=== PATIENT | female | born 1970 | race Hispanic/Latino ===

== ENCOUNTER 2021-05-25 11:33 | Emergency (ER) | payer BC, MEDICAID ==
[~2021-05-25] VITALS: Ht 154.9 cm; Wt 68.0 kg
[2021-05-25] MEDS ORDERED: ONDANSETRON 4MG INJ ONE (12:16)
[2021-05-25] MEDS ORDERED: HYDROMORPHONE 0.5 MG SYG (0.5MG/0.5ML) ONE (12:16)
[2021-05-25] MEDS ORDERED: ONDANSETRON 4MG INJ IVP ONE (12:30)
[2021-05-25] MEDS ORDERED: HYDROMORPHONE 0.5 MG SYG (0.5MG/0.5ML) IVP ONE (12:30)
[2021-05-25 12:36] LABS: BASOPHILS % (AUTO) 0.2 % (0.0-5.0); EOSINOPHILS % (AUTO) 0.2 % (0.0-8.0); HEMATOCRIT 39.3 % (36-48); LYMPHOCYTES % (AUTO) 8.9 % (21.0-51.0); MEAN CORPUSCULAR HGB CONC 32.8 g/dL (32.0-36.0); MEAN CORPUSCULAR VOLUME 88.3 fL (79-99); MONOCYTES % (AUTO) 3.3 % (3.0-13.0); PLATELET COUNT (AUTO) 401 K/uL (130-400); RED BLOOD CELL COUNT(AUTO) 4.45 MIL/uL (4.00-5.50); RED CELL DISTRIBUTION WIDTH 13.8 % (11.0-15.5); WHITE BLOOD COUNT (AUTO) 16.3 K/uL (4.8-10.8)
[2021-05-25 12:50] LABS: ALBUMIN 4.2 g/dL (3.5-5.0); BILIRUBIN,TOTAL 0.4 mg/dL (0.2-1.0); CREATININE 0.7 mg/dL (0.5-1.5); POTASSIUM 3.1 mmol/L (3.5-5.1); TOTAL PROTEIN, SERUM 8.3 g/dL (6.0-8.3)
[2021-05-25] MEDS ORDERED: HYDROMORPHONE 0.5 MG SYG (0.5MG/0.5ML) IVP SCH (12:51)
[2021-05-25] MEDS ORDERED: 0.9%NACL 1000ML 1,000 ML IV SCH (12:51)
[2021-05-25 13:22] LABS: APPEARANCE,URINE Turbid (CLEAR); BILIRUBIN,URINE Negative (NEGATIVE); COLOR,URINE Yellow (YELLOW); GLUCOSE, URINE (UA) Negative (NEGATIVE); KETONES,URINE Negative (NEGATIVE); LEUKOCYTE ESTERASE ,URINE Trace (NEGATIVE); NITRATE,URINE Negative (NEGATIVE); OCCULT BLOOD,URINE Nonhemolyzed Trace (NEGATIVE); PROTEIN,URINE POS 1+ mg/dL (NEGATIVE); UROBILINOGEN,URINE 0.2 mg/dL (0.2-1.0)
[2021-05-25 13:31] LABS: AMORPHOUS SEDIMENT,UR Moderate /LPF (None Seen); BACTERIA,URINE Few /HPF (None Seen); PH,URINE 1.025 (5.0-8.0); RBC,URINE 0-1 /HPF (0-1); SQUAMOUS EPITHELIAL CELL,UR Rare /HPF (0-2)
[2021-05-25] MEDS ORDERED: IOHEXOL-350 75 ML VIAL IV ONE (15:07)
[2021-05-25] MEDS ORDERED: CEFTRIAXONE 1G VIAL ONE (16:10)
[2021-05-25] MEDS ORDERED: KETOROLAC 30MG VIAL (30MG/ML) ONE (16:10)
[2021-05-25] MEDS ORDERED: CIPR-278 PO (16:15)
[2021-05-25] MEDS ORDERED: IBUP-2088 PO (16:15)
[2021-05-25] MEDS ORDERED: ONDA4TAB4 PO (16:15)
[2021-05-25] MEDS ORDERED: CEFTRIAXONE 1G VIAL IVP SCH (16:20)
[2021-05-25 16:21] VITALS: BP 134/81
[2021-05-25] MEDS ORDERED: KETOROLAC 30MG VIAL (30MG/ML) IV SCH (16:30)
== END 2021-05-25 16:28 | disposition home or self-care (01) ==
LOC: EDH 11:33
DX: N20.1 Calculus of ureter (principal); K68.9 Other disorders of retroperitoneum; Z88.0 Allergy status to penicillin; Z79.899 Other long term (current) drug therapy; I10 Essential (primary) hypertension; M32.9 Systemic lupus erythematosus, unspecified; Z98.890 Other specified postprocedural states
CPT/HCPCS: 36415; 74177; 80053; 81001; 82150; 83690; 85025; 87088; 96374; 96375; 96376; 99284; J0696; J1170 ×2; J1885; J2405; Q9967

== ENCOUNTER 2021-11-12 21:04 | Emergency (ER) | payer BC ==
[~2021-11-12] VITALS: Ht 154.9 cm; Wt 70.3 kg
[~2021-11-12 21:04] MED LIST: CIPR-278 PO; IBUP-2088 PO; ONDA4TAB4 PO
[2021-11-12 21:26] LABS: APPEARANCE,URINE Clear (CLEAR); BILIRUBIN,URINE Negative (NEGATIVE); COLOR,URINE Yellow (YELLOW); GLUCOSE, URINE (UA) Negative (NEGATIVE); KETONES,URINE Negative (NEGATIVE); LEUKOCYTE ESTERASE ,URINE Negative (NEGATIVE); NITRATE,URINE Negative (NEGATIVE); OCCULT BLOOD,URINE Negative (NEGATIVE); PH,URINE 7.5 (5.0-8.0); PROTEIN,URINE Negative (NEGATIVE); UROBILINOGEN,URINE 0.2 mg/dL (0.2-1.0)
[2021-11-12] MEDS ORDERED: ONDANSETRON 4MG INJ IVP ONE (21:30)
[2021-11-12] MEDS ORDERED: PANTOPRAZOLE 40 MG/VIAL IVP ONE (21:30)
[2021-11-12] MEDS ORDERED: FAMOTIDINE 20MG VIAL IV ONE ×2 (21:30→21:36)
[2021-11-12] MEDS ORDERED: 0.9%NACL 1000ML 1,000 ML IV ONE (21:30)
[2021-11-12] MEDS ORDERED: METOCLOPRAMIDE 10 MG/2 ML VIAL IVP ONE (21:30)
[2021-11-12 21:31] LABS: BASOPHILS % (AUTO) 0.2 % (0.0-5.0); EOSINOPHILS % (AUTO) 1.6 % (0.0-8.0); HEMATOCRIT 41.4 % (36-48); LYMPHOCYTES % (AUTO) 28.4 % (21.0-51.0); MEAN CORPUSCULAR HEMOGLOBIN 29.3 pg (27.0-33.0); MEAN CORPUSCULAR HGB CONC 33.6 g/dL (32.0-36.0); MEAN CORPUSCULAR VOLUME 87.3 fL (79-99); MONOCYTES % (AUTO) 7.1 % (3.0-13.0); NEUTROPHILS % (AUTO) 62.5 % (40.0-77.0); PLATELET COUNT (AUTO) 482 K/uL (130-400); RED BLOOD CELL COUNT(AUTO) 4.74 MIL/uL (4.00-5.50); RED CELL DISTRIBUTION WIDTH 14.2 % (11.0-15.5); WHITE BLOOD COUNT (AUTO) 9.1 K/uL (4.8-10.8)
[2021-11-12] MEDS ORDERED: PANTOPRAZOLE 40 MG/VIAL ONE (21:36)
[2021-11-12] MEDS ORDERED: METOCLOPRAMIDE 10 MG/2 ML VIAL ONE (21:36)
[2021-11-12] MEDS ORDERED: ONDANSETRON 4MG INJ ONE (21:36)
[2021-11-12 21:37] LABS: CREATININE 0.8 mg/dL (0.5-1.5); POTASSIUM 3.2 mmol/L (3.5-5.1)
[2021-11-12 21:54] LABS: ALBUMIN 4.5 g/dL (3.5-5.0); BILIRUBIN,TOTAL 0.3 mg/dL (0.2-1.0); TOTAL PROTEIN, SERUM 9.1 g/dL (6.0-8.3)
[2021-11-12] MEDS ORDERED: LIDOCAINE HCL 2% VISCOUS 15 ML UDCUP PO ONE (22:30)
[2021-11-12] MEDS ORDERED: DiphenhydrAMINE HCL 50 MG/ML VIAL IV ONE (22:30)
[2021-11-12] MEDS ORDERED: KETOROLAC 30MG VIAL (30MG/ML) IVP ONE (22:30)
[2021-11-12] MEDS ORDERED: MAG/ALUM/SIMETH 30 ML UDCUP PO ONE (22:30)
[2021-11-12] MEDS ORDERED: LIDOCAINE HCL 2% VISCOUS 15 ML UDCUP ONE (22:31)
[2021-11-12] MEDS ORDERED: MAG/ALUM/SIMETH 30 ML UDCUP ONE (22:31)
[2021-11-12] MEDS ORDERED: KETOROLAC 30MG VIAL (30MG/ML) ONE (22:32)
[2021-11-12] MEDS ORDERED: DiphenhydrAMINE HCL 50 MG/ML VIAL ONE (22:32)
[2021-11-13] MEDS ORDERED: PANT40TA PO (01:04)
[2021-11-13] MEDS ORDERED: METO-296 PO (01:04)
[2021-11-13] MEDS ORDERED: ONDA4TAB10 PO (01:04)
[2021-11-13] MEDS ORDERED: DICY20TA2 PO (01:04)
[2021-11-13 01:05] VITALS: BP 129/75
== END 2021-11-13 01:24 | disposition home or self-care (01) ==
LOC: EDH 21:04
DX: K29.70 Gastritis, unspecified, without bleeding (principal); E86.9 Volume depletion, unspecified; I10 Essential (primary) hypertension; M32.9 Systemic lupus erythematosus, unspecified; Z79.1 Long term (current) use of non-steroidal anti-inflammatories (NSAID); Z88.0 Allergy status to penicillin; Z90.81 Acquired absence of spleen; Z87.442 Personal history of urinary calculi
CPT/HCPCS: 36415; 76705; 80053; 81003; 83690; 84484; 85025; 93005; 96361; 96374; 96375; 99284; C9113; J1200; J1885; J2405; J2765; J3490